=== PATIENT | female | born 1960 | race Caucasian/White ===

== ENCOUNTER 2016-06-17 16:10 | Emergency (ER) | payer MEDICAID ==
[~2016-06-17 16:10] MED LIST: ACID CONTROL150 M2 PO; ALEVE220 MG PO; AMBIEN CR12.5 MG PO; AMBIEN PAK10 MG PO; AMBIEN10 M1 PO; AMBIEN5 M1 PO; ANTACID CHEWAB1 EACH PO; ATIVAN1 M1 PO; ATIVAN1 M2 PO; B-1100 M1 PO; B-1100 MG PO; BACTRIM1 TAB PO; BACTROBAN22 G1; CALCIUM CARBON500 M2 PO; CELEBREX200 M1 PO; CHLORDIAZEPOXID25 M1 PO; CITALOPRAM HBR20 M1 PO; COUMADIN5 M1 PO; COUMADIN5 M2 PO; CPAP INH; CYMBALTA60 MG PO; DEXILANT60 MG PO; DULCOLAX5 M1 PO; FOLIC ACID1 M1 PO; FOLIC ACID1 MG PO; HYDROCODONE/APA1 CAP PO; IBUPROFEN200 M1 PO; KEFLEX500 M4 PO; LAMICTAL100 MG PO; LAMOTRIGINE150 M1 PO; LATUDA20 MG PO; LEVOTHROID300 MCG PO; LEVOTHYROXINE100 MC1 PO; LEVOTHYROXINE125 MC1 PO; LEVOTHYROXINE200 MCG PO; LEXAPRO20 M2 PO; LITHIUM CARBON300 M2 PO; LOVENOX120 MG/0.8 SQ; LOVENOX40 MG/0.1 SC; LOVENOX40 MG/0.1 SQ; LOVENOX80 MG/0.8 SQ; MELATONIN5 M5 PO; MILK OF MAGNESIA PO; MOBIC7.5 M2 PO; MULTIVITAMINS1 EAC6 PO; NARDIL15 M1 PO; NEURONTIN100 M1 PO; NEURONTIN300 M1 PO; NORCO 5-325 TA1 EACH PO; NORCO 5/3251 TA1 PO; NORCO 5/3251 TAB PO; OMEPRAZOLE20 M3 PO; OMEPRAZOLE20 M4 PO; OXYCONTIN10 M2 PO; OXYCONTIN20 M2 PO; PERCOCET 5-3251 EACH PO; ROXICODONE5 M2 PO; SENOKOT-S TABL1 EACH PO; STOOL SOFTENER100 M3 PO; STOOL SOFTENER100 MG PO; SYNTHROID112 MC1 PO; SYNTHROID125 MCG PO; SYNTHROID150 MC1 PO; SYNTHROID150 MCG PO; SYNTHROID200 MCG PO; TYLENOL WITH C1 EACH PO; TYLENOL325 M1 PO; TYLENOL325 M2 PO; ULTRAM50 M1 PO; ULTRAM50 MG PO; VALIUM2 MG PO; VITAMIN B12-FO1 EAC1 PO; XANAX0.5 M1 PO; XARELTO15 M1 PO; XARELTO20 M1 PO; XARELTO20 MG PO; ZANTAC150 M1 PO; ZOFRAN ODT4 MG PO; ZOFRAN ODT4 MG/UDTAB PO
[2016-06-17] MEDS ORDERED: TYLENOL EXTRA500 M1 PO (16:48)
[2016-11-04] MEDS ORDERED: SYNTHROID137 MC1 PO (15:24)
== END 2016-06-17 18:35 ==
LOC: EDMED 16:10
DX: G89.18 Other acute postprocedural pain (principal); M25.562 Pain in left knee; Z96.652 Presence of left artificial knee joint; Z96.642 Presence of left artificial hip joint; Z86.711 Personal history of pulmonary embolism